=== PATIENT | female | born 1980 | race Caucasian/White ===

== ENCOUNTER 2021-12-16 14:54 | Outpatient (CLI) | payer BC ==
--- NOTE | 2021-12-18 12:13 | Mammography Report ---
BILATERAL FIRST EVER DIGITAL SCREENING MAMMOGRAM 3D/2D WITH ADDITIONAL VIEWS: 12/16/2021 CLINICAL: Routine screening. Family history of breast cancer. Baseline exam. No prior exams were available for comparison. There are scattered areas of fibroglandular density in both breasts (category b / 25%-50% glandular t issue). No significant masses, calcifications, or other findings are seen in either breast. IMPRESSION: NEGATIVE There is no mammographic evidence of malignancy. A 1 year screening mammogram is recommended. This exam was interpreted at Station ID: [id number]. NOTE: For mammograms, a report in lay terms will be sent to the patient. Approximately 15% of breast malignancies will not be visualized mammographically. In the management of a palpable breast mass, a negative mammogram must not discourage biopsy of a clinically suspicious lesion. Electronically Signed By: Edgar [email or web address]:12/17/2021 20:26:18 ACR BI-RADS Category 1: Negative 3341F PARENCHYMAL PATTERN: (A) - The breast(s) demonstrate(s) scattered fibroglandular densities. BI-RADS CATEGORY: (1) - 1 RECOMMENDATION: (ANNUAL) - Recommend routine annual screening mammography. [id number] 1 year screening LATERALITY: (B)
== END 2021-12-16 14:55 | disposition home or self-care (01) ==
LOC: DI.S 14:54
PROVIDERS: ATTEND Nurse Practitioner Family
DX: Z12.31 Encounter for screening mammogram for malignant neoplasm of breast (principal); Z80.3 Family history of malignant neoplasm of breast

== ENCOUNTER 2022-01-16 15:42 | Outpatient (CLI) | payer BC ==
--- NOTE | 2022-01-16 16:36 | SLEEP CARE CONSULTATION ---
Information from patient questionnaire entered by Leola Arora. I have reviewed and concur with the information entered by Leola Arora. This document represents the service I personally performed and the decisions made by me, Esther Lind ARNP. History of Present Illness Service Date and Time: 01/16/2022 1542 Reason for Visit: New patient Chief Complaint: reports: Insomnia, Unrefreshed sleep, Snoring, Fatigue Usual bedtime: 10-11PM Time it takes to fall asleep: 5-20MIN; with hydroxyzine and after reading for hour or more Snores at night: Yes Observed to quit breathing while asleep: No Sleeps alone due to snoring: No Number of times waking at night: 0-1 Reasons for waking at night: reports: Bathroom, Other (NOISE). denies: Choking, Snoring, Gasping for air Toss, Turn, or Twitch while sleeping: Yes (very active sleeper, kicks covers off) Recalls having dreams: Yes Usually gets out of bed at: 545-6AM; weekends 7-8 am Feels refreshed in the morning: Yes (SOMETIMES) Morning headache: No Sleepy or fatigued during the day: Yes Ever fallen asleep while driving: No Takes day naps: Yes (daily naps for about 2 hours) Dreams during day naps: No Prior sleep studies: No Additional HPI information: I had the pleasure of seeing DONIS ETIENNE today regarding the possibility of her having a sleep disorder. Her current complaints are insomnia, unrefreshed sleep, snoring and fatigue. She states that she snores and has known this since 2018. She states that she was taking escitalopram for her depression but it gave her insomnia and it was not being effective. This was changed to Bupropion and now venlafaxine. She is taking hydroxyzine to be able to get good sleep. She states she is not sleeping well at night and she is taking naps in the afternoon. She states since November PCP changing medications for her depression. She states she will wake up with a "white, coated, dry tongue" from sleeping with her mouth open. 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 Patient is Single and lives in . Have you smoked in the past 12 months: No Alcohol use: Yes Alcohol amount and frequency: 1-2 COUPLE TIMES A YEAR Caffeine use: Yes Caffeine amount and frequency: 2-3 COFFEES DAILY Family History Family history of sleep disordered breathing: Yes Family Hx Sleep Apnea: Father: Snoring, Sleep apnea - Untreated, Grandparent: Snoring Allergies and Home Medications Known drug allergies: Yes (PERTUSIS) Drug allergies reviewed: Yes (pertusis) Home medication list reviewed: Yes Allergy and home medication list: Medications: Venlafaxine Hydroxyzine Fexofenadine Multivitamin Probiotic Vit B & D [place] 3 Review of Systems Weight gain over past 5 years: 20 Gastrointestinal: reports: diarrhea, abdominal pain Neurological: reports: head trauma (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 denies: tonsillectomy, wisdom teeth removed Endocrine: reports: sluggishness Musculoskeletal: reports: neck pain, back pain Immunologic: reports: sneezing, rash, itching, allergies to food or environment (dust, dog, tree, grass pollen, tree pollen, dander) Physical Exam Vital signs obtained and entered by: LEOLA Baig MA Blood Pressure: 112/62 (left arm) Cuff size: regular Heart Rate: 74 O2 Saturation: 94 Height: 5 ft 3.5 in Weight: 271 lb 9.6 oz Body Mass Index: 47.3 BMI Classification: Morbidly Obese Neck circumference: 16 Mouth and throat: narrow oropharynx Soft palate: normal Hard palate: normal Uvula: normal Uvula visualization: 50% Mallampati Class II Tongue: enlarged in size with teeth medrano on lateral edges Tonsils: small Neck: normal w/o lymphadenopathy or thyromegaly Heart: regular rate and rhythm Lungs: clear bilaterally Impression and Plan 1. Suspected Obstructive Sleep Apnea-Hypopnea Syndrome, as suggested by a history of loud and irregular snoring, unrefreshed sleep and excessive daytime sleepiness. Narrow oropharynx and obesity are common predisposing factors for obstructive sleep apnea-hypopnea syndrome. I recommend proceeding to polysomnography to confirm the diagnosis and to assess severity. If the patient has significant sleep disordered breathing, a manual CPAP titration study will also be performed to find the optimal treatment pressure. I informed the patient of what the sleep studies involve and after some discussion, obtained agreement to proceed. The pathophysiology of obstructive sleep apnea-hypopnea syndrome was discussed with the patient and health risks of cardiovascular and cerebrovascular disease if not treated. Risks of drowsy driving discussed in detail and patient advised to avoid long distance driving and to rib puller at the first sign of drowsiness. Patient agreed to plan. * Schedule polysomnography * Avoid long distance driving or driving when feeling sleepy. * Avoid alcohol, sedative and muscle relaxant around bedtime. * Attempt to lose weight. * Review instructions provided by trained office staff on how to prepare for the sleep study. * Return for follow-up after sleep study completed. Counseling Topics: Weight loss health impact Visit Type: In Office Time Spent with Patient (minutes): 35 Provider Statement: I spent 100% of the Face to Face Visit with the patient with greater than 50% spent counseling the patient and coordination of care.
[2022-01-16 16:42] VITALS: BP 112/62
== END 2022-01-16 15:43 | disposition home or self-care (01) ==
LOC: SC 15:42
PROVIDERS: ATTEND Nurse Practitioner Family
DX: G47.10 Hypersomnia, unspecified (principal); G47.8 Other sleep disorders; R06.83 Snoring; E66.01 Morbid (severe) obesity due to excess calories; Z68.42 Body mass index [BMI] 45.0-49.9, adult
CPT/HCPCS: 99203; 99212

== ENCOUNTER 2022-02-11 14:58 | Outpatient (CLI) | payer BC | END 2022-02-11 14:59 | disposition home or self-care (01) | LOC: SC 14:58 | PROVIDERS: ATTEND Nurse Practitioner Family | DX: G47.33 Obstructive sleep apnea (adult) (pediatric) (principal); R09.02 Hypoxemia | CPT/HCPCS: 95806 ==

== ENCOUNTER 2022-02-13 10:51 | Outpatient (CLI) | payer BC ==
--- NOTE | 2022-02-13 15:22 | XRAY Report ---
PROCEDURE: Ankle 3 View LT INDICATIONS: INJURY OF LEFT ANKLE TECHNIQUE: 3 views of the ankle were acquired. COMPARISON: None FINDINGS: Bones: No fractures or dislocations. Ankle mortise is normally aligned. No suspicious bony lesions . Small plantar calcaneal spur noted Soft tissues: No tibiotalar joint effusion. Achilles tendon appears normal. IMPRESSION: Small calcaneal spur. No fracture Reviewed by: Gustavo De La Torre MD on 02/13/2022 2:21 PM [place] Approved by: Gustavo De La Torre MD on 02/13/2022 2:21 PM [place] Station ID: [id number]
--- NOTE | 2022-02-13 15:24 | XRAY Report ---
PROCEDURE: Foot 3 View LT INDICATIONS: INJURY OF LEFT FOOT TECHNIQUE: 3 views of the foot were acquired. COMPARISON: None FINDINGS: Bones: No fractures or dislocations. No suspicious bony lesions. Small plantar calcaneal spur Soft tissues: No tibiotalar joint effusion. Achilles tendon appears normal. IMPRESSION: Small calcaneal spur. No fracture Reviewed by: Gustavo De La Torre MD on 02/13/2022 2:22 PM [facility] Approved by: Gustavo De La Torre MD on 02/13/2022 2:22 PM [facility] Station ID: [id number]
== END 2022-02-13 10:52 | disposition home or self-care (01) ==
LOC: DI.S 10:51
PROVIDERS: ATTEND Physician Assistant
DX: M77.32 Calcaneal spur, left foot (principal)

== ENCOUNTER 2022-03-11 14:28 | Outpatient (CLI) | payer BC ==
--- NOTE | 2022-03-11 11:44 | SLEEP CARE CONSULTATION ---
Information from patient questionnaire entered by Leola Arora. I have reviewed and concur with the information entered by Leola Arora. This document represents the service I personally performed and the decisions made by , Esther Lind ARNP. History of Present Illness Service Date and Time: 03/11/2022 1120 Initial [place] Sleepiness Scale score: 11 (12/22/2021) Current [place] Sleepiness Scale score: 7 (03/11/22) Additional HPI information: DONIS ETIENNE returns via video telehealth visit for follow up and results of the recently performed home sleep study. I explained the pathophysiology behind obstructive sleep apnea. We then spent quite a bit of time discussing different treatment options. For mild obstructive sleep apnea, surgery and oral appliance are alternatives to nasal CPAP therapy but in moderate or severe cases, nasal CPAP is the most effective and reliable treatment. I reviewed the impact of weight changes on sleep apnea and strongly recommended losing weight. After some discussion, the patient opted to go with an oral appliance. She was advised that she will have to contact certified dentist and have device made. She will follow up in office a month after using the oral device. Patient couns eled not drink alcohol less than 4 hours before bedtime as it can increase snoring and apnea. Patient was cautioned about risks of drowsy driving until sleepiness symptoms resolve. Patient denies drowsy driving. Sleep Study - Results Type of Sleep Study: Home sleep study (COMPLETED 02/11/22) Prior sleep studies: No Polysomnography/Home Sleep Study results: Physician Impression: The quality of the study is good. The length of the study is adequate (> 240 minutes). Please also see the tabulated and graphic data. 1. Obstructive Sleep Apnea-Hypopnea (ICD-10 G47.33), mild, with an AHI of 8.4/hr and chloe SaO2 of 85%. During the study, the patient had 32 apneas (32 obstructive, 0 central, 0 mixed) and 30 hypopneas. The longest episode lasted 90.0 seconds. The patient did not sleep supine during this study. 2. Hypoxemia (ICD-10 R09.02), minimal, with the lowest oxygen saturation of 85 % and 0.4 minutes with SaO2 under 90%. Baseline oxygen saturation was normal (Average oxygen saturation was 95%). Allergies and Home Medications Drug allergies reviewed: Yes (pertusis vaccines) Home medication list reviewed: Yes (Venlafaxine 10 mg; MVT; fish oil; Vit B, D; Probiotic) Review of Systems Review of systems same as previous: Yes (no changes) Physical Exam Vital signs obtained and entered by: VIA PHONE Height: 5 ft 4 in (PER PT) Weight: 236 lb (PER PT) Body Mass Index: 40.5 BMI Classification: Morbidly Obese Impression and Plan 1. Obstructive Sleep Apnea-Hypopnea Syndrome, mild, with lowest oxygen saturation of 85%. Obviously this is the cause of the patients symptoms of unrefreshed sleep, and excessive daytime sleepiness. Positive pressure therapy could benefit anxiety, depression and asthma. As mentioned above, the patient chose an oral appliance to treat their apnea. A 3 month follow up will be made to see if appliance has reduced symptoms. If so, another polysomnography will be ordered with use of the oral appliance to check efficacy in reducing apnea. 2. Obesity, unspecified. Currently patients BMI is 40.5. Obesity increases the risk of apnea, CPAP pressure requirements and overall health risks especially cardiovascular and diabetes. Thus patient is advised to lose weight. * Oral appliance * Attempt to lose weight. * Avoid alcohol consumption near bedtime. * Avoid supine sleep * The patient is again cautioned about driving until sleepiness completely resolves. * Return one month after oral appliance obtained I will assess response to therapy at that time. Counseling Topics: Sleeping position, Weight loss health impact Visit Type: Telehealth Video Video Type: Doximity Patient Location: Home Location of Provider: Office Patient agrees and consents to this telehealth visit type: Yes Patient agrees to have their insurance billed: Yes Time Spent with Patient (minutes): 21 Provider Statement: I spent 100% of the Telehealth Video Call with the patient with greater than 50% spent counseling the patient and coordination of care.
== END 2022-03-11 14:29 | disposition home or self-care (01) ==
LOC: SC 14:28
PROVIDERS: ATTEND Nurse Practitioner Family
DX: G47.33 Obstructive sleep apnea (adult) (pediatric) (principal); E66.01 Morbid (severe) obesity due to excess calories; Z68.41 Body mass index [BMI] 40.0-44.9, adult